=== PATIENT | male | born 1935 | race Caucasian/White ===

== ENCOUNTER 2017-10-30 11:16 | Inpatient (IN) | payer OTHER, MEDICARE ==
[~2017-10-30] VITALS: Ht 175.3 cm; Wt 61.4 kg
[~2017-10-30 11:16] MED LIST: LOSARTAN-HCTZ1 EAC1 PO
[2017-10-30 12:07] LABS: HEMATOCRIT 49.4 % (38.0-50.0); MCHC 33.2 G/DL (30.0-36.0); MCV 96.5 FL (86-99); MEAN PLAT.VOLUME 9.5 uM^3 (9.0-12.4); PLATELET COUNT 388 K/uL (156-360); RBC DIS.WIDTH-CV 13.2 % (11.8-14.6); RBC DIS.WIDTH-SD 47.3 % (39-53); RED BLOOD COUNT 5.12 M/uL (4.00-5.50); WHITE BLOOD COUNT 12.4 K/uL (4.1-10.2)
[2017-10-30 12:18] LABS: CHLORIDE 104 mEq/L (99-109); POTASSIUM 3.5 mEq/L (3.7-5.4)
[2017-10-30 12:19] LABS: SODIUM 150 mEq/L (136-147)
[2017-10-30 12:20] LABS: GLUCOSE 123 mg/dL (70-99)
[2017-10-30 12:22] LABS: ANION GAP 17 MEQ/L (2-14)
[2017-10-30 12:24] LABS: GFR ESTIMATE (CALCULATED) 28 mL/min/ (58.99-99999)
[2017-10-30 12:25] LABS: UREA NITROGEN (BUN) 68 mg/dL (9-23)
[2017-10-30 12:28] LABS: TROP-I INTERPRETATION NEGATIVE; TROPONIN-I 0.07 ng/mL (0.0-0.30)
[2017-10-30 14:43] LABS: EOSINOPHIL (%) 0.5 % (0-5); EOSINOPHIL COUNT 0.1 K/uL (0-0.3); IMMATURE GRANULOCYTE (%) 0.4 % (0.0-0.7); IMMATURE GRANULOCYTE COUNT 0.1 K/uL; INSTRUMENT ABS NEUTROPHIL CT 10.2 K/uL; LYMPHOCYTE COUNT 0.9 K/uL (1.0-2.8); MONOCYTE (%) 5.9 % (3-12); MONOCYTE COUNT 0.7 K/uL (0-0.8); NEUTROPHIL (%) 85.4 % (45-76); NEUTROPHIL COUNT 10.2 K/uL (1.8-6.4)
[2017-10-30] MEDS ORDERED: BUSPIRONE HCL15 MG PO (14:49)
[2017-10-30] MEDS ORDERED: FINASTERIDE5 MG PO (14:50)
[2017-10-30] MEDS ORDERED: TAMSULOSIN HCL0.4 MG PO (14:51)
[2017-10-30 14:52] LABS: TOTAL BILIRUBIN 0.7 mg/dL (0.0-1.0)
[2017-10-30 14:53] LABS: ALKALINE PHOSPHATASE 99 IU/L (3-129)
[2017-10-30 18:29] VITALS: BP 133/74
[2017-10-30 23:30] VITALS: BP 130/70
[2017-10-31 03:30] VITALS: BP 139/65
[2017-10-31 07:00] VITALS: BP 127/80
[2017-10-31 11:29] VITALS: BP 127/68
[2017-10-31 14:44] LABS: ADD MIUA? YES; BILIRUBIN NEGATIVE; BLOOD NEGATIVE; COLOR YELLOW ((YELLOW)); GLUCOSE (STRIP) NEGATIVE; KETONES NEGATIVE; LEUKOCYTES NEGATIVE; NITRITE NEGATIVE; PROTEIN (STRIP) NEGATIVE; SPECIFIC GRAVITY 1.019 (1.000-1.030); UROBILINOGEN 0.2 MG/DL (0.2-1.0)
[2017-10-31 15:07] LABS: BACTERIA NONE SEEN /HPF; EPITHELIAL CELLS RARE /HPF; MUCUS 1+ /LPF; RED BLOOD CELLS 0-5 /HPF (0-5); UCUL ADDED? NO; UNCLASSIFIED CASTS 0-5 /LPF; UNCLASSIFIED CRYSTALS 1+ /HPF; WHITE BLOOD CELLS 0-5 /HPF (0-5)
[2017-11-01 08:01] VITALS: BP 124/76
[2017-11-01 19:28] VITALS: BP 120/72
[2017-11-02 07:09] VITALS: BP 117/74
[2017-11-02] MEDS ORDERED: MORPHINE CON20 MG/M1 PO (15:48)
== END 2017-11-02 16:27 | disposition hospice, home (50) | DRG 682 ==
LOC: EME 11:16 → EDOF 14:00 → 2EAST 14:00 → ENRESERV 14:28 → 2EAST 18:23
PROVIDERS: Emergency Medicine
DX: N17.9 Acute kidney failure, unspecified (principal); J69.0 Pneumonitis due to inhalation of food and vomit; E86.0 Dehydration; E46 Unspecified protein-calorie malnutrition; Z68.1 Body mass index [BMI] 19.9 or less, adult; R13.10 Dysphagia, unspecified; E87.6 Hypokalemia; Z66 Do not resuscitate; Z51.5 Encounter for palliative care; G30.9 Alzheimer's disease, unspecified; F02.80 Dementia in other diseases classified elsewhere, unspecified severity, without behavioral disturbance, psychotic disturbance, mood disturbance, and anxiety; D72.829 Elevated white blood cell count, unspecified; N40.1 Benign prostatic hyperplasia with lower urinary tract symptoms; N39.498 Other specified urinary incontinence; G47.00 Insomnia, unspecified; F34.1 Dysthymic disorder; R97.20 Elevated prostate specific antigen [PSA]; R26.9 Unspecified abnormalities of gait and mobility; I12.9 Hypertensive chronic kidney disease with stage 1 through stage 4 chronic kidney disease, or unspecified chronic kidney disease; N18.9 Chronic kidney disease, unspecified; I45.10 Unspecified right bundle-branch block; E78.5 Hyperlipidemia, unspecified; M48.54XA Collapsed vertebra, not elsewhere classified, thoracic region, initial encounter for fracture; F41.9 Anxiety disorder, unspecified; Z87.891 Personal history of nicotine dependence; Z96.649 Presence of unspecified artificial hip joint; Z82.0 Family history of epilepsy and other diseases of the nervous system; Z82.5 Family history of asthma and other chronic lower respiratory diseases
CPT/HCPCS: 71020; 71250; 74230; 80048; 80053; 81003; 83605; 83880; 84484; 85025; 85027; 87040; 92610 GN; 92611 GN; 93005; 94799; 99281; 99285; J0692; J1956; J2270; J3480; J7030